=== PATIENT | male | born 1955 | race African-American/Black ===

== ENCOUNTER → 2021-03-21 15:16 | Outpatient (BNVA) | payer BC, SELFPAY | PROVIDERS: PCP Internal Medicine; Visit Provider Urology ==

== ENCOUNTER 2022-04-11 14:34 | Outpatient (REF) | payer MEDICARE, BC, SELFPAY ==
[2022-04-11 15:06] LABS: Hematocrit 45.8 % (42.0-52.0); Hemoglobin 14.4 g/dl (14.0-18.0); Mean Corpuscular HGB Conc 31.4 g/dl (31.0-36.0); Mean Corpuscular Hemoglobin 22.1 pg (27.0-33.0); Mean Corpuscular Volume 70.2 fL (80.0-98.0); Platelet Count 205 X10*3/uL (160-400); Red Blood Count 6.52 X10*6/uL (4.60-5.80); Red Cell Distribution Width 17.2 % (11.0-16.0); White Blood Count 6.7 X10*3/uL (4.8-10.8)
[2022-04-11 15:25] LABS: PLT ABN DIST 1
[2022-04-19 13:28] LABS: Testosterone, Free 131.6 pg/mL (35.0-155.0); Testosterone, Total 975 ng/dL (250-1100)
== END 2022-04-11 14:35 | disposition home or self-care (01) ==
LOC: HO.LAB 14:34
PROVIDERS: Visit Provider Urology
DX: Z12.5 Encounter for screening for malignant neoplasm of prostate (principal); E29.1 Testicular hypofunction
CPT/HCPCS: 36415; 84153; 84402; 84403; 85027

== ENCOUNTER → 2022-05-24 10:59 | Outpatient (BNVA) | payer OTHER, MEDICARE, SELFPAY | PROVIDERS: PCP Internal Medicine; Visit Provider Urology | DX: Z13.89 Encounter for screening for other disorder (principal) ==

== ENCOUNTER 2022-11-23 09:55 | Outpatient (AMB) | payer OTHER, SELFPAY ==
--- NOTE | 2022-11-23 09:58 | MHC.OFFVIS ---
Intake Intake Visit Reasons: 6M CBC/PSA/Testo(set) Intake Note: Pt presents to the office today for a 6 month follow up CBC,PSA,Testosterone. Allergies No Known Allergies Allergy (Verified 11/23/22 09:58) HPI HPI Comments History of Present Illness Details Abel DUARTE is a very pleasant male. He is a patient of Dr Roca. He is seen for the following urologic conditions. - hypogonadism - erectile dysfunction Current labs stable - done through PCP Continue good response to tadalafil as needed Continue laboratory surveillance every 6 months Injection Day: Sun Lab Day: Sat Hypogonadism: ?Had been dosing with testosterone 40 units a week ? He presents today for?discussion and adjustment of T therapy ? Initial symptoms include? - erectile dysfunction, decreased libido, decreased mood, decreased strength, increased fatigue ? The onset of symptoms has been?gradual.? Associate conditions include? - no associated Medical or psychosocial conditions ? Laboratory results?Baseline 11/13 Bouncing around 300, PSA 0.5 ?01/14 , testosterone 400, PSA 0.5, HCT 39 ?04/15 , testosterone 500-650 ?01/15 PSA 1.1 T 1040 Hct 47 ?07/16 T 989, HCT 47, PSA 1.4 - 07/17 PSA 1.2, T 946, 04/19 975 3.4 45, 10/19 FT 12 P 2.5 H 45 ? Current therapy includes?injectable exogenous testosterone.? Therapeutic plan?continue current medication.? PFSH Medical History Erectile dysfunction Hypogonadism in male Surgical History History of knee surgery History of right hip replacement S/P hernia repair Review of Systems Const Denies chills and Denies fever(s) Card Reports no additional complaints and Denies syncope Resp Denies cough GI Denies abdominal pain and Denies heartburn Reports as per HPI and Denies change in libido Neuro Denies syncope Psych Denies change in libido Endo Denies change in libido Physical Exam Const General: cooperative, healthy appearing, comfortable and no acute distress Orientation/consciousness: patient oriented x3 HEENT Face and sinus: Yes normal facial exam Mouth: moist mucous membranes Neck Neck: Yes normal visual inspection, Yes full ROM and Yes trachea midline Chest Chest palpation & inspection: normal inspection of the chest Resp Effort & Inspection: normal respiratory effort, able to speak in complete sentences and no respiratory distress GI Inspection: Yes normal to inspection Back/Spine/Pelvis Cervical Spine: normal cervical lordosis Thoracic/Lumbar Spine: thoracic and lumbar spine normal to inspection Skin General skin exam: no rashes or lesions noted Neuro General: patient oriented x3, gait normal, tone normal and moves all extremities Extrem General: Yes normal to inspection and Yes capillary refill normal Assessment & Plan Assessment & Plan (1) Erectile dysfunction: Code(s): N52.9 - Male erectile dysfunction, unspecified (2) Hypogonadism in male: Code(s): E29.1 - Testicular hypofunction Plan Six month follow-up Orders: Orders Prostate Specific Antigen 6 Months E29.1 - Testicular hypofunction Testosterone, Total 6 Months E29.1 - Testicular hypofunction Complete Blood Count no Diff 6 Months E29.1 - Testicular hypofunction Patient Instructions: Imaging studies, laboratory and physical exam results were discussed and reviewed in detail. No major barriers to patient understanding were identified. An opportunity to ask questions regarding the treatment plan was provided. All questions were answered. The patient expressed understanding and agreement with the above treatment plan. The patient is aware they should contact our office by phone for worsening of their current condition or the appearance of new urologic symptoms. Compliance is encouraged with any medications and followup testing that is ordered. It is a privilege to participate in the urologic care of your patient. If you have any questions or concerns regarding treatment for the above conditions, or other urologic issues, please do not hesitate to contact me. The office telephone contact is [phone]. This note is constructed using voice recognition software. While every effort has been made to ensure accuracy forming fixer errors may have been included. Yours sincerely, Dr Gilmar Menezes MD, [facility] - Urology Providers of Expert, Compassionate Care for the Genitourinary System Coding Level of Care Code Est Pt Level 4 (33166) Diagnoses Erectile dysfunction N52.9 Hypogonadism in male E29.1
== END 2022-11-23 10:29 | disposition home or self-care (01) ==
PROVIDERS: Visit Provider Urology
DX: N52.9 Male erectile dysfunction, unspecified (principal); E29.1 Testicular hypofunction
CPT/HCPCS: 99214

== ENCOUNTER → 2022-11-23 09:55 | Outpatient (BNVA) | payer OTHER, MEDICARE, SELFPAY | PROVIDERS: Visit Provider Urology ==

== ENCOUNTER 2023-05-24 15:21 | Outpatient (AMB) | payer MEDICARE, SELFPAY ==
--- NOTE | 2023-05-24 15:24 | MHC.OFFVIS ---
Intake Intake Visit Reasons: labs follow up(set) Intake Note: Patient is Present for Telephone Follow Up labs Urology Med: Tadalafil, Testosterone Antibiotic Allergy: None Blood Thinner: Eliquis Allergies No Known Allergies Allergy (Verified 05/24/23 15:25) Medication List - Last Reconciled 05/24/23 by Gilmar Menezes MD apixaban (Eliquis) 5 mg PO BID atorvastatin 40 mg PO DAILY ciclopirox 0.77% appl topical BID lisinopril 10 mg PO DAILY lisinopril 5 mg PO DAILY tadalafil (Cialis) 20 mg PO DAILY PRN testosterone cypionate 80 mg (0.4 mL) subcut QWEEK 28 days HPI HPI Comments History of Present Illness Details Abel DUARTE is a very pleasant male. He is a patient of Dr Roca. He is seen for the following urologic conditions. - hypogonadism - erectile dysfunction Telemedicine Evaluation 15 min Consultation Doximity Ruthy Video attempted Current labs stable - done through PCP Continue good response to tadalafil as needed Continue laboratory surveillance every 6 months Injection Day: Sun Lab Day: Sat Prescription provided Hypogonadism: ?Had been dosing with testosterone 40 units a week ? He presents today for?discussion and adjustment of T therapy ? Initial symptoms include? - erectile dysfunction, decreased libido, decreased mood, decreased strength, increased fatigue ? The onset of symptoms has been?gradual.? Associate conditions include? - no associated Medical or psychosocial conditions ? Laboratory results?Baseline 11/13 Bouncing around 300, PSA 0.5 ?01/14 , testosterone 400, PSA 0.5, HCT 39 ?04/15 , testosterone 500-650 ?01/15 PSA 1.1 T 1040 Hct 47 ?07/16 T 989, HCT 47, PSA 1.4 - 07/17 PSA 1.2, T 946, 04/19 975 3.4 45, 10/19 FT 12 P 2.5 H 45, 04/20 T 500 P 2.8 H44 ? Current therapy includes?injectable exogenous testosterone.? Therapeutic plan?continue current medication.? PFSH Medical History Erectile dysfunction Hypogonadism in male Surgical History History of right hip replacement S/P hernia repair History of knee surgery Review of Systems Const All systems reviewed & are unremarkable except as noted in HPI and below Reports no additional complaints Resp Reports no additional complaints GI Reports no additional complaints Reports as per HPI Musc Reports no additional complaints Physical Exam Telemedicine evaluation Appropriate responses Regular breathing rate and rhythm HEENT Head: Yes normal to inspection Ears: hearing grossly normal bilaterally Eyes General: appearance normal, both eyes and all related structures Neck Neck: Yes normal visual inspection Chest Chest palpation & inspection: normal inspection of the chest Resp Effort & Inspection: normal respiratory effort and able to speak in complete sentences Assessment & Plan Assessment & Plan (1) Hypogonadism in male: Code(s): E29.1 - Testicular hypofunction (2) Erectile dysfunction: Code(s): N52.9 - Male erectile dysfunction, unspecified Plan Six-month follow-up Orders: Orders Prostate Specific Antigen 6 Months E29.1 - Testicular hypofunction Complete Blood Count no Diff 6 Months E29.1 - Testicular hypofunction Testosterone, Total 6 Months E29.1 - Testicular hypofunction Medications: Refilled testosterone cypionate 80 mg (0.4 mL) subcut QWEEK 2 mL 5RF 28 days E29.1 - Testicular hypofunction Patient Instructions: Imaging studies, laboratory and physical exam results were discussed and reviewed in detail. No major barriers to patient understanding were identified. An opportunity to ask questions regarding the treatment plan was provided. All questions were answered. The patient expressed understanding and agreement with the above treatment plan. The patient is aware they should contact our office by phone for worsening of their current condition or the appearance of new urologic symptoms. Compliance is encouraged with any medications and followup testing that is ordered. It is a privilege to participate in the urologic care of your patient. If you have any questions or concerns regarding treatment for the above conditions, or other urologic issues, please do not hesitate to contact me. The office telephone contact is [phone]. This note is constructed using voice recognition software. While every effort has been made to ensure accuracy machine tank operator errors may have been included. Yours sincerely, Dr Gilmar Menezes MD, [facility] - Urology Providers of Expert, Compassionate Care for the Genitourinary System Telehealth Telehealth Location of provider rendering services: practice address Location of patient: address on file Patient Identification confirmed using: Name, : Yes Telehealth method: video Patient verbally consented to treatment: Yes Patient verbally consented to billing insurance company: Yes Patient informed of any privacy concerns related to visit: Yes Coding Level of Care Code Tele Est Pt Level 4 (85903) Diagnoses Hypogonadism in male E29.1 Erectile dysfunction N52.9
== END 2023-05-24 16:20 | disposition home or self-care (01) ==
LOC: HO.HUSH 15:21
PROVIDERS: PCP Internal Medicine; Visit Provider Urology
DX: E29.1 Testicular hypofunction (principal); N52.9 Male erectile dysfunction, unspecified
CPT/HCPCS: 99214

== ENCOUNTER → 2023-05-24 15:21 | Outpatient (BNVA) | payer MEDICARE, SELFPAY | PROVIDERS: PCP Internal Medicine; Visit Provider Urology ==

== ENCOUNTER 2023-11-22 11:39 | Outpatient (AMB) | payer MEDICARE, SELFPAY ==
--- NOTE | 2023-11-22 11:43 | A.OFFVIS_ITS ---
Intake Visit Reasons: 6m/labs Intake Note: Patient is Present for Follow Up labs Urology Medication:Tadalafil, Testosterone Antibiotic Allergies:None Blood Thinners: [place] Hoist Cylinder Loader Required: No Allergies No Known Allergies Allergy (Verified 11/22/23 11:43) HPI Comments Details: Abel DUARTE is a very pleasant male. He is a patient of Dr Roca. He is seen for the following urologic conditions. - hypogonadism - erectile dysfunction Current labs stable - done through PCP via [facility] Continue good response to tadalafil as needed - preferred is dissolvable Continue laboratory surveillance every 6 months Injection Day: Sun Lab Day: Sat Prescription provided Hypogonadism: ?Had been dosing with testosterone 40 units a week ? He presents today for?discussion and adjustment of T therapy ? Initial symptoms include? - erectile dysfunction, decreased libido, decreased mood, decreased strength, increased fatigue ? The onset of symptoms has been?gradual.? Associate conditions include? - no associated Medical or psychosocial conditions ? Laboratory results?Baseline 11/13 Bouncing around 300, PSA 0.5 ?01/14 , testosterone 400, PSA 0.5, HCT 39 ?04/15 , testosterone 500-650 ?01/15 PSA 1.1 T 1040 Hct 47 ?07/16 T 989, HCT 47, PSA 1.4 - 07/17 PSA 1.2, T 946, 04/19 975 3.4 45, 10/19 FT 12 P 2.5 H 45, 04/20 T 500 P 2.8 H44 ? Current therapy includes?injectable exogenous testosterone.? Therapeutic plan?continue current medication.? PFSH Medical History Erectile dysfunction Hypogonadism in male Surgical History History of right hip replacement S/P hernia repair History of knee surgery Review of Systems Const Denies chills and Denies fever(s) Card Reports no additional complaints and Denies syncope Resp Denies cough GI Denies abdominal pain and Denies heartburn Reports as per HPI and Denies change in libido Neuro Denies syncope Psych Denies change in libido Endo Denies change in libido Physical Exam Const General: cooperative, healthy appearing, comfortable and no acute distress Orientation/consciousness: patient oriented x3 HEENT Face and sinus: Yes normal facial exam Mouth: moist mucous membranes Neck Neck: Yes normal visual inspection, Yes full ROM and Yes trachea midline Chest Chest palpation & inspection: normal inspection of the chest Resp Effort & Inspection: normal respiratory effort, able to speak in complete sentences and no respiratory distress GI Inspection: Yes normal to inspection Back/Spine/Pelvis Cervical Spine: normal cervical lordosis Thoracic/Lumbar Spine: thoracic and lumbar spine normal to inspection Skin General skin exam: no rashes or lesions noted Neuro General: patient oriented x3, gait normal, tone normal and moves all extremities Extrem General: Yes normal to inspection and Yes capillary refill normal Assessment & Plan Assessment & Plan (1) Erectile dysfunction: Code(s): N52.9 - Male erectile dysfunction, unspecified Category: Medical (2) Hypogonadism in male: Code(s): E29.1 - Testicular hypofunction Category: Medical Plan Six month follow-up labs Patient Instructions: Imaging studies, laboratory and physical exam results were discussed and reviewed in detail. No major barriers to patient understanding were identified. An opportunity to ask questions regarding the treatment plan was provided. All questions were answered. The patient expressed understanding and agreement with the above treatment plan. The patient is aware they should contact our office by phone for worsening of their current condition or the appearance of new urologic symptoms. Compliance is encouraged with any medications and followup testing that is ordered. It is a privilege to participate in the urologic care of your patient. If you have any questions or concerns regarding treatment for the above conditions, or other urologic issues, please do not hesitate to contact me. The office telephone contact is [phone]. This note is constructed using voice recognition software. While every effort has been made to ensure accuracy manager of construction errors may have been included. Yours sincerely, Dr Gilmar Menezes MD, [facility] - Urology Providers of Expert, Compassionate Care for the Genitourinary System Coding Level of Care Code Est Pt Level 4 (72900) Diagnoses Erectile dysfunction N52.9 Hypogonadism in male E29.1
== END 2023-11-22 12:19 | disposition home or self-care (01) ==
PROVIDERS: PCP Internal Medicine; Visit Provider Urology
DX: N52.9 Male erectile dysfunction, unspecified (principal); E29.1 Testicular hypofunction
CPT/HCPCS: 99214

== ENCOUNTER → 2023-11-22 11:39 | Outpatient (BNVA) | payer MEDICARE, SELFPAY | PROVIDERS: PCP Internal Medicine; Visit Provider Urology | DX: E29.1 Testicular hypofunction (principal); N52.9 Male erectile dysfunction, unspecified | CPT/HCPCS: 99212 ==

== ENCOUNTER 2024-05-08 11:26 | Outpatient (AMB) | payer MEDICARE, SELFPAY ==
--- NOTE | 2024-05-08 11:24 | MHC.OFFVIS ---
Intake Visit Reasons: 6M Labs(set) Allergies No Known Allergies Allergy (Verified 05/08/24 11:24) HPI Comments Details: Abel DUARTE is a very pleasant male. He is a patient of Dr Roca. He is seen for the following urologic conditions. - hypogonadism - erectile dysfunction Telemedicine Evaluation 15 min Consultation DoximWild Pockets Ruthy Video Current labs stable - done through PCP via [facility] Continue good response to tadalafil as needed - preferred is dissolvable from [place] [facility] Continue laboratory surveillance every 6 months Injection Day: Sun Lab Day: Sat Prescription provided Hypogonadism: ?Had been dosing with testosterone 40 units a week ? He presents today for?discussion and adjustment of T therapy ? Initial symptoms include? - erectile dysfunction, decreased libido, decreased mood, decreased strength, increased fatigue ? The onset of symptoms has been?gradual.? Associate conditions include? - no associated Medical or psychosocial conditions ? Laboratory results?Baseline 11/13 Bouncing around 300, PSA 0.5 ?01/14 , testosterone 400, PSA 0.5, HCT 39 ?04/15 , testosterone 500-650 ?01/15 PSA 1.1 T 1040 Hct 47 ?07/16 T 989, HCT 47, PSA 1.4 - 07/17 PSA 1.2, T 946, 04/19 975 3.4 45, 10/19 FT 12 P 2.5 H 45, 04/20 T 500 P 2.8 H44, 04/21 T 698 P 2.7 H 47 ? Current therapy includes?injectable exogenous testosterone.? Therapeutic plan?continue current medication.? PFSH Medical History Erectile dysfunction Hypogonadism in male Surgical History History of right hip replacement S/P hernia repair History of knee surgery Review of Systems Const All systems reviewed & are unremarkable except as noted in HPI and below Reports no additional complaints Resp Reports no additional complaints GI Reports no additional complaints Reports as per HPI Musc Reports no additional complaints Physical Exam Telemedicine evaluation Appropriate responses Regular breathing rate and rhythm HEENT Head: Yes normal to inspection Ears: hearing grossly normal bilaterally Eyes General: appearance normal, both eyes and all related structures Neck Neck: Yes normal visual inspection Chest Chest palpation & inspection: normal inspection of the chest Resp Effort & Inspection: normal respiratory effort and able to speak in complete sentences Telehealth Telehealth Telehealth Platform: Fetch[employer] Location of provider rendering services: practice address Location of patient: address on file Patient Identification confirmed using: Name, : Yes Telehealth method: video Patient verbally consented to treatment: Yes Patient verbally consented to billing insurance company: Yes Patient informed of any privacy concerns related to visit: Yes Minutes spent on Phone/Video with Pt.: 15 Assessment & Plan Assessment & Plan (1) Erectile dysfunction: Code(s): N52.9 - Male erectile dysfunction, unspecified Category: Medical (2) Hypogonadism in male: Code(s): E29.1 - Testicular hypofunction Category: Medical Plan Six-month follow-up lab work Continue testosterone G Code G2211 Has been applied in accordance with CMS guidelines ( Medicare and Medicaid programs; [place] 2023 Payment Policies ) to convey the inherent complexity in ongoing patient care within the urology clinic. This deliberate utilization aligns with the visits complexity associated with medical care services serving as a focal point for necessary healthcare, addressing the patient's singular serious or complex condition. This judicious use ensure was appropriate reimbursement, especially in the context of managing such conditions within our specialized, longitudinal urologic practice. This patient has a complex and chronic urologic condition that requires longitudinal follow-up. [facility], Medicare and Medicaid programs; [place] 2023 Payment Policies Fed. Reg 88 (09): 96614-19033 (Dec.032022) Orders: Orders Prostate Specific Antigen 6 Months E29.1 - Testicular hypofunction Testosterone, Total 6 Months E29.1 - Testicular hypofunction Complete Blood Count no Diff 6 Months E29.1 - Testicular hypofunction Medications: Refilled testosterone cypionate 80 mg (0.4 mL) subcut QWEEK 28 days 2 mL 5RF E29.1 - Testicular hypofunction Patient Instructions: Imaging studies, laboratory and physical exam results were discussed and reviewed in detail. No major barriers to patient understanding were identified. An opportunity to ask questions regarding the treatment plan was provided. All questions were answered. The patient expressed understanding and agreement with the above treatment plan. The patient is aware they should contact our office by phone for worsening of their current condition or the appearance of new urologic symptoms. Compliance is encouraged with any medications and followup testing that is ordered. It is a privilege to participate in the urologic care of your patient. If you have any questions or concerns regarding treatment for the above conditions, or other urologic issues, please do not hesitate to contact me. The office telephone contact is [phone]. This note is constructed using voice recognition software. While every effort has been made to ensure accuracy pipe machine operator errors may have been included. Yours sincerely, Dr Gilmar Menezes MD, [facility] - Urology Providers of Expert, Compassionate Care for the Genitourinary System Coding Level of Care Code Tele Est Pt Level 3 (38525) Complex EM visit Add On G2211 Diagnoses Erectile dysfunction N52.9 Hypogonadism in male E29.1
--- OUTSIDE RECORDS SUMMARY | 2024-05-08 11:30 | XMS_ITS | Continuity of Care Document ---
Author Name [facility] Organization [facility] Care Team Providers Care Rugby League Footballer Name Role Phone [facility] Unavailable Unavailable Immunizations Combined list of available immunizations from the Department of Defense and Veterans Affairs facilities. Immunization Series Date Given Administered By Site Reaction Lot Number CVX Code Drug Textile Converter Status Comments Source typhoid Vi capsular polysaccharid e vaccine 1 2003 Unknown, Provider [id number] Sanofi Pasteur ([facility]) complet ed typhoid Vi capsular polysacch aride vaccine DoD influenza virus vaccine, whole virus 1 2002 Unknown, Provider [id number] Jessy-Dona ([facility]) complet ed influenza virus vaccine, whole virus DoD influenza virus vaccine, whole virus 1 2001 Unknown, Provider [id number] Sanofi Pasteur ([facility]) complet ed influenza virus vaccine, whole virus DoD typhoid Vi capsular polysaccharid e vaccine 1 2001 Unknown, Provider [id number] Sanofi Pasteur ([facility]) complet ed typhoid Vi capsular polysacch aride vaccine DoD influenza virus vaccine, whole virus 1 2000 Unknown, Provider [id number] 16 [place]-Leilaerslizandro ([facility]) complet ed influenza virus vaccine, whole virus DoD hepatitis A vaccine, adult dosage 2 1999 Unknown, Provider [id number] Merck ([facility]) complet ed hepatitis A vaccine, adult dosage DoD hepatitis A vaccine, adult dosage 1 1999 Unknown, Provider [id number] Merck ([facility]D) complet ed hepatitis A vaccine, adult dosage DoD influenza virus vaccine, whole virus 1 1998 Unknown, Provider [id number] 16 Wyeth-Ayerst ([facility]) complet ed influenza virus vaccine, whole virus DoD typhoid vaccine, parenteral, other than acetone-kille d, dried 1 1998 Unknown, Provider [id number] 41 [place] [facility] ([facility]) complet ed typhoid vaccine, parentera l, other than acetone-k illed, dried DoD influenza virus vaccine, whole virus 1 1997 Unknown, Provider [id number] 16 Sanofi Pasteur ([facility]) complet ed influenza virus vaccine, whole virus DoD tetanus and diphtheria toxoids, adsorbed, preservative free, for adult use (2 Lf of tetanus toxoid and 2 Lf of diphtheria toxoid) 1 1997 Unknown, Provider 09 () complet ed tetanus and diphtheri a toxoids, adsorbed, preservat vicente free, for adult use (2 Lf of tetanus toxoid and 2 Lf of diphtheri a toxoid) DoD yellow fever vaccine 1 1997 Unknown, Provider 37 () complet ed yellow fever vaccine DoD typhoid vaccine, parenteral, acetone-kille d, dried ([place] ) 2 1995 Unknown, Provider 53 () complet ed typhoid vaccine, parentera l, acetone-k illed, dried ([place] ) [facility] trivalent poliovirus vaccine, live, oral 1 1989 Unknown, Provider 02 () complet ed trivalent polioviru s vaccine, live, oral [facility] Social History Combined list of available smoking, tobacco, and other social history from Department of Defense and Veterans Affairs facilities. Social History Type Response Date Comment Sourc e This section is an empty social history section. DoD
--- OUTSIDE RECORDS SUMMARY | 2024-05-08 11:30 | XMS_ITS ---
Author Name [facility] Organization Unknown Problems Problem Status Onset Date Problem Type Date of Resolution Source Need for vaccination active EncounterDiagnosisAct [facility] Immunizations Vaccine Date Source Lot Number Status Qwilr Cynthia Covid-19 Pr efilled Syringe (12+ yrs) 01/27/2024 [facility] [id number] completed
== END 2024-05-08 11:45 | disposition home or self-care (01) ==
LOC: HO.HUSH 11:26
PROVIDERS: PCP Internal Medicine; Visit Provider Urology
DX: N52.9 Male erectile dysfunction, unspecified (principal); E29.1 Testicular hypofunction
CPT/HCPCS: 99213; G2211

== ENCOUNTER → 2024-05-08 11:26 | Outpatient (BNVA) | payer MEDICARE, SELFPAY | PROVIDERS: PCP Internal Medicine; Visit Provider Urology ==

== ENCOUNTER 2025-03-31 14:03 | Outpatient (AMB) | payer MEDICARE, SELFPAY ==
--- NOTE | 2025-03-31 14:05 | A.OFFVIS_ITS ---
Intake Visit Reasons: PSA/Testosterone(set) Intake Note: Reason for Visit: PSA/Testosterone Results Urology Meds: Tadalafil, Testosterone Blood Thinners: [employer] Labs: PSA- 2.8 Total Testosterone- 1525.8 Free Testosterone: 52.18 %Free Testosterone: 3.42 (10/26/2024) Imaging: None Last PVR: None Senior Safety Management Consultant Required: No Accompanied by: Self / Same As Patient Allergies No Known Allergies Allergy (Verified 03/31/25 14:08) HPI Comments Details: Abel DUARTE is a very pleasant male. He is a patient of Dr Roca. He is seen for the following urologic conditions. - hypogonadism - erectile dysfunction Continued good response to weekly testosterone Current labs stable - done through PCP via [facility] Last lab work had been done on a Saturday after injection on Saturday which is why testosterone as high Reiterated timing of injection with lab work Six-month follow-up Continue good response to tadalafil as needed - preferred is dissolvable from [place] [facility] Injection Day: [place] Lab Day: Sat Labs: - 10/26/24 - Saturday - 1500 50.5 Hypogonadism: ?Had been dosing with testosterone 40 units a week ? He presents today for?discussion and adjustment of T therapy ? Initial symptoms include? - erectile dysfunction, decreased libido, decreased mood, decreased strength, increased fatigue ? The onset of symptoms has been?gradual.? Associate conditions include? - no associated Medical or psychosocial conditions ? Laboratory results?Baseline 11/13 Bouncing around 300, PSA 0.5 ?01/14 , testosterone 400, PSA 0.5, HCT 39 ?04/15 , testosterone 500-650 ?01/15 PSA 1.1 T 1040 Hct 47 ?07/16 T 989, HCT 47, PSA 1.4 - 07/17 PSA 1.2, T 946, 04/19 975 3.4 45, 10/19 FT 12 P 2.5 H 45, 04/20 T 500 P 2.8 H44, 04/21 T 698 P 2.7 H 47 - 10/21 ? Current therapy includes?injectable exogenous testosterone.? Therapeutic plan?continue current medication.? PFSH Medical History Erectile dysfunction Hypogonadism in male Surgical History History of right hip replacement S/P hernia repair History of knee surgery Review of Systems Const Denies chills and Denies fever(s) Card Reports no additional complaints and Denies syncope Resp Denies cough GI Denies abdominal pain and Denies heartburn Reports as per HPI and Denies change in libido Neuro Denies syncope Psych Denies change in libido Endo Denies change in libido Physical Exam Const General: cooperative, healthy appearing, comfortable and no acute distress Orientation/consciousness: patient oriented x3 HEENT Face and sinus: Yes normal facial exam Mouth: moist mucous membranes Neck Neck: Yes normal visual inspection, Yes full ROM and Yes trachea midline Chest Chest palpation & inspection: normal inspection of the chest Resp Effort & Inspection: normal respiratory effort, able to speak in complete sentences and no respiratory distress GI Inspection: Yes normal to inspection Back/Spine/Pelvis Cervical Spine: normal cervical lordosis Thoracic/Lumbar Spine: thoracic and lumbar spine normal to inspection Skin General skin exam: no rashes or lesions noted Neuro General: patient oriented x3, gait normal, tone normal and moves all extremities Extrem General: Yes normal to inspection and Yes capillary refill normal Assessment & Plan Assessment & Plan (1) Hypogonadism in male: Code(s): E29.1 - Testicular hypofunction Category: Medical (2) Erectile dysfunction: Code(s): N52.9 - Male erectile dysfunction, unspecified Category: Medical Plan Six-month follow-up lab work Orders: Orders Testosterone, Total 5 Months E29.1 - Testicular hypofunction Hematocrit 5 Months E29.1 - Testicular hypofunction Prostate Specific Antigen 5 Months E29.1 - Testicular hypofunction Medications: Refilled testosterone cypionate 80 mg (0.4 mL) subcut QWEEK 2 mL 5RF 28 days E29.1 - Testicular hypofunction Patient Instructions: This note is constructed using voice recognition software. While every effort has been made to ensure accuracy pattern fitter errors may have been included. Imaging studies, laboratory and physical exam results were discussed and reviewed in detail. No major barriers to patient understanding were identified. An opportunity to ask questions regarding the treatment plan was provided. All questions were answered. The patient expressed understanding and agreement with the above treatment plan. The patient is aware they should contact our office by phone for worsening of their current condition or the appearance of new urologic symptoms. Compliance is encouraged with any medications and followup testing that is ordered. It is a privilege to participate in the urologic care of your patient. If you have any questions or concerns regarding treatment for the above conditions, or other urologic issues, please do not hesitate to contact me. The office telephone contact is [phone]. Sincerely, Dr Gilmar Menezes MD, [facility] - Urology Compassionate Specialist Care for the Genitourinary System Coding Level of Care Code Est Pt Level 3 (16704) Complex visit Add On G2211 Diagnoses Hypogonadism in male E29.1 Erectile dysfunction N52.9
--- OUTSIDE RECORDS SUMMARY | 2025-03-31 16:57 | XMS_ITS | Clinical Summary ---
Author Organization [facility] Prior to 09/26/[address] [place] [address] Care Team Providers Care Aerospace Technician Name Role Phone Luis Roa MD Primary Care Provider Allergies No known active allergies Medications Medication Sig Dispensed Refills Start Date End Date Status CIALIS 20 MG tablet TAKE 1/2 TO 1 TABLET BY MOUTH ONCE DAILY WHEN NEEDED 11 08/09/2017 Active atorvastatin (LIPITOR) tablet 80 mg TAKE 1 TAB(S) ONCE A DAY AT BEDTIME 2 06/26/2017 Active testosterone cypionate (DEPO-TESTOSTERONE CYPIONATE) injection 200 mg/mL INJECT (0.4 ML) SUBCUTANEOUSLY EVERY WEEK 0 12/14/2020 Active lisinopril (PRINIVIL,ZESTRIL) tablet 5 mg Take 5 mg by mouth daily. 0 11/09/2020 Active Eliquis 5 MG TABS tablet Take 5 mg by mouth 2 (two) times a day. 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 Cervical spondylosis 12/09/2020 Low testosterone 09/03/2017 Erectile dysfunction 09/03/2017 Family History Medical History Relation Name Comments Arthritis Father Diabetes Father Hyperlipidemia Father Hypertension Father Arthritis Mother Diabetes Mother Hyperlipidemia Mother Hypertension Mother Relation Name Status Comments Father Mother Social History Tobacco Use Types Packs/Day Years Used Date Smoking Tobacco: Never Smokeless Tobacco: Never Alcohol Use Standard Drinks/Week Comments Yes 0 (1 standard drink = 0.6 oz pur e alcohol) once a day Sex and Gender Information Value Date Recorded Sex Assigned at Not on file Gender Identity Not on file Sexual Orientation Not on file Job Start Date Occupation Industry Not on file Not on file Not on file Last Filed Vital Signs Vital Sign Reading Time Taken Comments Blood Pressure 123/72 09/03/2017 11:22 AM EDT Pulse - - Temperature - - Respiratory Rate - - Oxygen Saturation - - Inhaled Oxygen Concentration - - Weight 93.9 kg (207 lb) 01/16/2021 2:36 PM EDT Height 175.3 cm (5' 9 ) 01/16/2021 2:36 PM EDT Body Mass Index 30.57 01/16/2021 2:36 PM EDT Plan of Treatment Health Maintenance Due Date Last Done Comments Hepatitis C Screening 1955 COVID-19 Vaccine (#1) 1957 Depression Screening 1969 BMI Counseling 1975 Preventative Health Evaluation 1975 DTap / Tdap / Td (1 - Tdap) 02/29/1976 Colon Cancer Screening (Colonoscopy) 2002 Shingrix-Zoster Vaccine (1 of 2) 2007 Fall Risk Assessment 2022 Pneumococcal Vaccine (1 of 1 - PCV) 2022 Influenza Vaccine (#1) 2024 RSV Adult > 60+ Yrs or Pregn ant (1 - 1-dose 75+ series) 02/29/2032 Hepatitis B Vaccines Aged Out No long er eligible based on patient's age to complete this topic RSV Ped < 20 months Aged Out No longe r eligible based on patient's age to complete this topic Care Teams Aerospace Technician Relationship Specialty Start Date End Date Luis Roa MD [address] [address] PCP - General Client Relations Associate 08/14/17
--- OUTSIDE RECORDS SUMMARY | 2025-03-31 16:57 | XMS_ITS ---
Author Name [facility] Organization Unknown Problems Problem Status Onset Date Problem Type Date of Resolution Source Need for vaccination active EncounterDiagnosisAct [facility] Immunizations Vaccine Date Source Lot Number Status [employer] Covid-19 Pr efilled Syringe (12+ yrs) 01/27/2024 [facility] [id number] completed Encounters Encounter Type Encounter Reason Primary Diagnosis Location Date Ambulatory Encounter for immunization Encounter for immunization [facility] 01/27/2024 Care Team Organization Name Specialty Phone Email Start Date End Da te [facility] 01/27/2024
== END 2025-03-31 14:35 | disposition home or self-care (01) ==
LOC: HO.HUSH 14:04
PROVIDERS: PCP Internal Medicine; Visit Provider Urology
DX: E29.1 Testicular hypofunction (principal); N52.9 Male erectile dysfunction, unspecified
CPT/HCPCS: 99213; G2211

== ENCOUNTER → 2025-03-31 14:03 | Outpatient (BNVA) | payer MEDICARE, SELFPAY | PROVIDERS: PCP Internal Medicine; Visit Provider Urology | DX: E29.1 Testicular hypofunction (principal); N52.9 Male erectile dysfunction, unspecified | CPT/HCPCS: 99212 ==